=== PATIENT | male | born 1960 | race Caucasian/White ===

== ENCOUNTER 2020-02-17 07:14 | Emergency (ER) | payer BC, SELFPAY ==
[2020-02-17] VITALS (9 sets, daily range): BP systolic 118–145; BP diastolic 83–99; PULSE 60–68; RESP 14–21; TEMP 37.2; O2SAT 96–98
--- NOTE | ~2020-02-17 | CT_ITS ---
EXAMINATION: CT brain wo con EXAM DATE: 02/17/2020 07:48 INDICATION: Syncope. TECHNIQUE: Spiral CT of the head was performed without contrast. Axial, coronal and sagittal images were reviewed. The dose-length product (DLP) for this examination was 605.33 mGy-cm. The exposure w as tailored according to patient size, and iterative reconstruction (ASIR) was used as additional dos e reduction technique. There is no prior study for comparison. FINDINGS: There is no acute intraparenchymal hemorrhage. No evidence of intraparenchymal brain mass lesion. No evidence of acute infarction. There is no mass effect or midline shift. The ventricles are normal in size. There are no extra-axial collections. There are no acute calvarial fractures. T he orbits are unremarkable. Soft tissue is unremarkable. The visualized sinuses and mastoid air joe ls are well aerated. IMPRESSION: 1. No acute intracranial findings. Reviewed, dictated and finalized at location A.
--- NOTE | ~2020-02-17 | XR_ITS ---
EXAMINATION: [id number] EXAM DATE: 02/17/2020 08:01 INDICATION: Initial encounter following injury, with pain of the left ribs. TECHNIQUE: Frontal projection of the upper left ribs, frontal projection of the lower left ribs, obli que projection of the left ribs, without chest x-ray(s) for interpretation. There is no prior study for comparison. FINDINGS: There is acute left T9 rib fracture posterolaterally. Possible T8, T9 nondisplaced rib frac tures posteromedially near the transverse processes. Cardiac monitoring device. IMPRESSION: Acute left 9th rib fracture posterolaterally. Possible T8 and T9 nondisplaced rib fractu res posteromedially. Reviewed, dictated and finalized at location A. IMPRESSION: Acute left 9th rib fracture posterolaterally. Possible T8 and T9 n ondisplaced rib fractures posteromedially.
--- NOTE | 2020-02-17 07:26 | ECG_ITS ---
Measurements Intervals [place] Rate: 68 P: 66 MN: 220 QRS: -43 QRSD: 88 T: -7 QT: 393 QTc: 419 Interpretive Statements SINUS RHYTHM WITH FIRST DEGREE AV BLOCK POSSIBLE LEFT ATRIAL ENLARGEMENT LEFT AXIS DEVIATION INCOMPLETE RIGHT BUNDLE BRANCH BLOCK BORDERLINE T WAVE ABNORMALITY- INFERIOR LEADS BASELINE ARTIFACT- I, II, III, AVR, AVL, AVF, V1-V2 ABNORMAL ECG Electronically Signed On 02-17-2020 7:59:27 CDT by Jean Mari D.O.
--- NOTE | 2020-02-17 07:32 | ED.GENADULT ---
HPI - General Adult General Chief complaint: Syncope Stated complaint: fall, rib pain Time Seen by Provider: 02/17/20 07:16 Source: RN notes reviewed History of Present Illness HPI narrative: Patient presents emergency department from home for left rib pain. Patient states last night he was walking into his house when he got dizzy and had a syncopal episode. States when he fell he struck the left side of his ribs questionably struck his head. Patient states that that this morning pain is worse in his left lateral ribs and it hurts to move or take a deep breath and came to the emergency department for further evaluation. Patient does state he has a history of syncopal episodes and is currently being worked up by Dr. Nirav Goodman at the [facility] cardiology group and has a loop recorder in. He denies having any fevers or chills chest pain shortness of breath abdominal pain or any other symptoms Related Data Home Medications Medication Instructions Recorded Confirmed aspirin [Aspir-81] 02/17/20 atorvastatin 10 mg PO HS 02/17/20 atorvastatin [Lipitor] 10 mg PO DAILY 02/17/20 insulin pump controller 02/17/20 02/17/20 vitamin [id number]-[id number] acid tablet PO 02/17/20 Allergies Allergy/AdvReac Type Severity Reaction Status Date / Time No Known Allergies Allergy Verified 02/17/20 08:59 Review of Systems Review of Systems: Narrative: Gen.: Denies fevers or chills Eyes: Denies eye pain or visual change ENT: Denies congestion Respiratory: Denies shortness of breath or cough CV: Denies chest pain or palpitations reports syncope GI: Denies abdominal pain nausea, emesis or diarrhea Musculoskeletal: Denies back pain or muscle pain reports left rib pain Neuro: Denies numbness, tingling, weakness or focal weakness Skin: Denies rash Except as documented, all other systems reviewed and negative [facility] Past Medical History Medical History (Updated 02/17/20 @ 11:30 by Tonny Adames DO) Syncope Social History Social History (Updated 02/17/20 @ 07:33 by Tonny Adames DO) Smoking status: Never smoker Gender identity (if verbalized by the patient): Male Exam Narrative: Exam Narrative: APPEARANCE: No acute distress, nontoxic, resting in bed EYES: EOMI HEENT: Normocephalic, atraumatic, OMM RESPIRATORY: No respiratory distress Clear to auscultation bilaterally with no rhonchi wheezing or rales. CARDIOVASCULAR: Regular rate and rhythm without murmurs rubs or gallops. Chest: Tender palpation of the left lateral ribs no ecchymosis, pain increased with deep inspiration and movement of the torso ABDOMINAL: Soft, nontender, nondistended, no rebound or guarding MUSCULOSKELETAl: Moves all extremities. No clubbing, cyanosis or edema. NEURO: Awake and alert x 3. Following commands, speech normal, no focal deficits SKIN:: Warm, dry. No rashes lesions or abrasions PSYCHIATRIC: Normal affect/mood, Course Course Emergency Course: Patient's loop recorder interrogated and discussed with [employer] rep patient with episode of narrow complex tachycardia up to 240 bpm around time of syncopal episode Called and discussed with patient's hr systems analyst discussed his arrhythmias seen by [employer]. At this time he can have the patient set up to be evaluated by 1 of his community relations specialist in his office today. Recommends discharge the second troponin is negative Discussed with patient results of workup and diagnosis. Discussed need for follow-up with primary care, proper use of medication, and reasons to return to the emergency department. Patient understands and agrees to current treatment plan patient is scheduled to go directly to office for EP evaluation Vital Signs Vital signs: Vital Signs Temperature 98.9 F 02/17/20 07:18 Pulse Rate 68 02/17/20 07:18 Respiratory Rate 18 02/17/20 07:18 Blood Pressure 145/90 H 02/17/20 07:18 Pulse Oximetry 96 02/17/20 07:18 Temperature 98.9 F 02/17/20 07:18 Pulse Rate 62 02/17/20 10:59
[2020-02-17 07:35] LABS: Basophils Absolute Auto 0.1 K/mm3 (0.0-0.1); Basophils Percent Auto 0.7 % (0.2-1.2); Eosinophils Absolute Auto 0.2 K/mm3 (0-0.3); Eosinophils Percent Auto 1.6 % (0-4.4); Hematocrit 41.5 % (42.0-52.0); Hemoglobin 14.2 g/dL (14.0-18.0); Immature Granulocyte Absolute 0.03 K/mm3 (0.00-0.031); Immature Granulocyte Percent A 0.3 % (0-0.5); Lymphocytes Absolute Auto 2.16 K/mm3 (0.9-3.2); Lymphocytes Percent Auto 20.9 % (18.3-44.2); Mean Corpuscular HGB Conc 34.2 g/dl (32-36); Mean Corpuscular Hemoglobin 33.4 pg (26-34); Mean Corpuscular Volume 97.6 fl (80-100); Mean Platelet Volume 10.1 fl (7.4-10.4); Monocytes Percent Auto 9.6 % (2.6-8.5); Neutrophils Absolute Auto 6.9 K/mm3 (1.3-6.7); Neutrophils Percent Auto 66.9 % (45.5-73.1); Platelet Count Result 277 k/mm3 (150-375); Red Blood Count 4.25 M/mm3 (4.6-6.20); Red Cell Distribution Width 12.3 % (11.5-14.5); White Blood Count 10.3 K/mm3 (4.5-10.0)
[2020-02-17 07:47] LABS: Anion Gap 13.4 mmol/L (7-16); Blood Urea Nitrogen 12 mg/dL (9-20); Calcium 9.4 mg/dL (8.4-10.2); Carbon Dioxide 25 mmol/L (22-30); Chloride 99 mmol/L (98-107); Estimated CRCL calculation 102 ml/min; Estimated Glomerular Filt Rate > 60; Glucose 203 mg/dL (75-110); Potassium 4.4 mmol/L (3.4-5.0); Sodium 133 mmol/L (137-145)
[2020-02-17 07:54] LABS: INR 0.9; Prothrombin Time 11.7 Seconds (11.1-14.7)
[2020-02-17 07:55] LABS: Partial Thromboplastin Time 24.7 SECONDS (22.3-36.8)
[2020-02-17 08:00] LABS: Troponin I < 0.012 ng/mL (0.000-0.034)
[2020-02-17] MEDS: MORPHINE SULFATE 2 MG/ML INJ IV PUSH (08:05)
[2020-02-17 08:44] LABS: Add Urine Microscopic? NO; Appearance Urine Clear (Clear); Bilirubin Urine Negative (Negative); Blood Urine Negative (Negative); Color Urine Yellow (Yellow); Glucose Urine UA Negative (Negative); Ketones Urine Negative (Negative); Leukocyte Esterase Ur Negative LEU/UL (Negative); Nitrate Urine Negative (Negative); Protein Urine Negative (Negative); Specific Grav Ur 1.015 (1.001-1.035); Urobilinogen Urine Negative mg/dL (<2.0)
[2020-02-17 11:18] LABS: Troponin I < 0.012 ng/mL (0.000-0.034)
== END 2020-02-17 11:48 | disposition home or self-care (01) ==
PROVIDERS: Emergency Provider Emergency Medicine
DX: S22.32XA Fracture of one rib, left side, initial encounter for closed fracture (principal); R55 Syncope and collapse; I44.0 Atrioventricular block, first degree; I45.10 Unspecified right bundle-branch block; R94.31 Abnormal electrocardiogram [ECG] [EKG]; W18.39XA Other fall on same level, initial encounter
CPT/HCPCS: 36415; 70450; 71101; 80048; 81003; 84484; 85025; 85610; 85730; 93005; 96374; 99284; J2270

== ENCOUNTER 2023-08-05 11:05 | Emergency (ER) | payer BC, SELFPAY ==
--- NOTE | ~2023-08-05 | XR_ITS ---
EXAMINATION: XR ribs LT 2V w CXR 2V DATE: 08/05/2023 12:11 INDICATION: Posterior left lower rib pain post fall TECHNIQUE: AP and lateral views of the chest and 3 views of the left ribs were obtained. COMPARISON: 02/17/2020 FINDINGS: Pectus excavatum. 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 Interval healing of the previously acute, now spring [place] posterolateral left eighth and ninth rib fractures. Age indeterminate fracture at the anterior ri ght eighth rib. No focal airspace opacities, pulmonary edema, pleural effusion or pneumothorax. Cardi omediastinal silhouette is normal. IMPRESSION: 1. Old healed left eighth and ninth rib fractures. No acute left-sided rib fractures identified. 2. Age-indeterminate anterior right eighth rib fracture. Correlate for point tenderness at this locat ion. 3. Clear lungs. No acute cardiopulmonary disease. Reviewed, dictated and finalized at location A. R [employer] IMPRESSION: 1. Old healed left eighth and ninth rib fractures. No acute left-sided rib frac tures identified. 2. Age-indeterminate anterior right eighth rib fracture. Correlate for point te nderness at this location. 3. Clear lungs. No acute cardiopulmonary disease.
[2023-08-05 11:22] VITALS: BP 140/78; PULSE 68; RESP 18; TEMP 36.6; O2SAT 99
[2023-08-05 12:57] VITALS: BP 157/77; PULSE 70; RESP 19; O2SAT 100
--- NOTE | 2023-08-05 13:12 | ED.GENADULT ---
[facility] - General Adult General Chief complaint: Fall Stated complaint: fall/rib pain Time Seen by Provider: 08/05/23 13:12 Source: patient Mode of arrival: ambulatory Limitations: no limitations History of Present Illness HPI narrative: This is a 63-year-old male who presents to the ED with chief complaint of of left-sided rib pain following a fall that occurred 3 days ago. Patient reports that he was walking outside of a restaurant when he accidentally slipped on a patch of ice. Reports he landed on his back left side. Reports history of rib fractures in the past and this feels the same. Denies troubles breathing or any right-sided pain. Denies back pain, neck pain, LOC or headache. Related Data Home Medications Medication Instructions Recorded Confirmed aspirin 81 mg tablet,delayed 02/17/20 release (Aspir-) atorvastatin 10 mg tablet 10 mg PO HS 02/17/20 atorvastatin 10 mg tablet (Lipitor) 10 mg PO DAILY 02/17/20 insulin pump controller 02/17/20 02/17/20 vitamin B12 500 mcg-folic acid 400 tablet PO 02/17/20 mcg tablet Allergies Allergy/AdvReac Type Severity Reaction Status Date / Time No Known Allergies Allergy Verified 08/05/23 12:56 Review of Systems Review of Systems: All systems as dictated in [facility] Past Medical History Medical History (Updated 08/05/23 @ 13:13 by Samuel Drew PA-C) Syncope Social History Social History (Updated 02/17/20 @ 07:33 by Tonny Adames DO) Smoking status: Never smoker Gender identity (if verbalized by the patient): Male Exam Narrative: GENERAL: Well-appearing, well-nourished, and in no acute distress. HEAD: Normocephalic, atraumatic. EYES: PERRLA and EOMI. ENT: Nares clear, no rhinorrhea or epistaxis. Mucous membranes moist. Oropharynx without tonsillar hypertrophy exudate or other lesions. NECK: Supple. No adenopathy or masses. CHEST: No respiratory distress. Clear to auscultation. No wheezes rales or rhonchi. Moderate chest wall tenderness to the left posterior ribs. No crepitus. HEART: Regular rate and rhythm. No murmur heard. Normal peripheral pulses. ABDOMEN: Soft, nontender, nondistended, normal active bowel sounds. MSK: Normal range of motion. No edema. SKIN: Warm, dry, no rash. NEURO: Alert and oriented x3. No focal deficits. PSYCH: Normal mood and affect. Course Vital Signs Vital signs: Vital Signs Temperature 98 F 08/05/23 11:22 Pulse Rate 68 08/05/23 11:22 Respiratory Rate 18 08/05/23 11:22 Blood Pressure 140/78 08/05/23 11:22 Pulse Oximetry 99 08/05/23 11:22 Oxygen Delivery Room Air 08/05/23 11:22 Temperature 98 F 08/05/23 11:22 Pulse Rate 70 08/05/23 12:57 Respiratory Rate 19 08/05/23 12:57 Blood Pressure 157/77 H 08/05/23 12:57 Pulse Oximetry 100 08/05/23 12:57 Oxygen Delivery Room Air 08/05/23 11:22 Medical Decision Making MDM Narrative Medical decision making narrative: This is a 63-year-old male who presents to the ED with chief complaint of left-sided posterior rib pain after a fall that occurred 3 days ago. Vitals are normal. Respiratory exam intact. No bruising or crepitus to the ribs. He does have point tenderness to 1 of the ribs. X-ray does not show any acute fractures but a questionable fracture on the right side. He has absolutely no pain or tenderness on the right. Symptoms consistent with probable isolated rib fracture even though the x-ray did not catch it. Incentive spirometer given. Short course of [place] given for breakthrough pain. Pt will be discharged in stable condition. Return precautions given and supportive measures discussed. Pt is understanding and agreeable with plan for discharge and follow-up with PCP. Vital Signs Vital Signs: Vital Signs Temperature 98 F 08/05/23 11:22 Pulse Rate 68 08/05/23 11:22 Respiratory Rate 18 08/05/23 11:22 Blood Pressure 140/78 08/05/23 11:22 Pulse Oximetry 99
== END 2023-08-05 13:38 | disposition home or self-care (01) ==
PROVIDERS: Emergency Provider Physician Assistant
DX: R07.81 Pleurodynia (principal); Z79.82 Long term (current) use of aspirin; Z79.4 Long term (current) use of insulin; W00.0XXA Fall on same level due to ice and snow, initial encounter
CPT/HCPCS: 71046; 71100; 99283